=== PATIENT | male | born 1955 | race Caucasian/White ===

== ENCOUNTER → 2022-03-24 | Outpatient (CLI) | payer MEDICARE, MEDICAID ==
[2022-03-24 14:59] LABS: BILIRUBIN,URINE NEGATIVE (NEGATIVE); UROBILINOGEN,URINE 0.2 E.U./dL (0.2)
== END | disposition home or self-care (01) ==
LOC: NPLAB 14:36
PROVIDERS: ATTEND Internal Medicine
DX: N39.0 Urinary tract infection, site not specified (principal)
CPT/HCPCS: 81001

== ENCOUNTER → 2023-08-09 | Outpatient (CLI) | payer MEDICARE, MEDICAID ==
[2023-08-09 18:58] LABS: BASOPHIL # 0.1 10^3/uL (0.0-0.1); BASOPHIL % 0.8 % (0.0-0.2); EOSINOPHIL # 0.3 10^3/uL (0.0-0.2); EOSINOPHIL % 4.3 % (0.0-5.0); HEMATOCRIT(ML) 46.9 % (37.0-53.0); HEMOGLOBIN 15.2 g/dL (13.9-16.3); LYMPHOCYTES # 2.17 10^3/uL1 (1.0-4.8); LYMPHOCYTES % 35.6 % (24.0-44.0); MEAN CORP HGB 33.3 pg (26-34); MEAN CORP HGB CONCENTRATION 32.4 g/dL (33-36.5); MEAN CORP VOLUME 102.6 fL (78-100); MONOCYTES # 0.6 10^3/uL (0.3-0.8); NEUTROPHILS % 49.1 % (41.0-85.0); PLATELET COUNT 167 10^3/uL (150-400); RED BLOOD CELL 4.57 10^6/uL (4.50-5.90); RED CELL DISTRIBUTION WIDTH 12.9 % (11.5-14.5); WHITE BLOOD CELL 6.1 10^3/uL (4.5-11.0)
[2023-08-09 19:01] LABS: +ADD MANUAL DIFF(NO CHRG) NO
[2023-08-09 19:22] LABS: ALBUMIN(ML) 2.9 g/dL (3.4-5.0); ALBUMIN/GLOBULIN RATIO 0.966; ANION GAP 11.4; BUN/CREATININE RATIO 8.4 (10.0-20.0); CALCIUM 8.3 mg/dL (8.4-10.5); CREATININE SERUM 1.19 mg/dL (0.59-1.40); POTASSIUM 4.4 mmol/L (3.6-5.2)
== END | disposition home or self-care (01) ==
LOC: NPLAB 17:41
PROVIDERS: ATTEND Internal Medicine
DX: J44.9 Chronic obstructive pulmonary disease, unspecified (principal); E78.5 Hyperlipidemia, unspecified; G62.9 Polyneuropathy, unspecified; G40.911 Epilepsy, unspecified, intractable, with status epilepticus; Z79.899 Other long term (current) drug therapy
CPT/HCPCS: 36415; 80053; 83036; 84443; 85025